=== PATIENT | female | born 1985 | race Caucasian/White ===

== ENCOUNTER → 2023-03-04 | Outpatient (CLI) | payer MEDICAID ==
[2004-07-05 00:16] VITALS: TEMP 97.4
[~2023-03-04] MED LIST: BCP TD; BENADRYL25 M2 PO; CEPHALEXIN500 M1 PO; CLINDAMYCIN HC300 MG PO; CYMBALTA 30MG30 MG PO; DEPAKOTE 125MG125 M1 PO; DEPAKOTE500 MG PO; DEPO SHOT IM; INDERAL LA160 MG PO; IRON325 MG PO; KLONOPIN 1MG1 MG PO; NORCO 325 MG-51 TAB PO; PERCOCET 5/321 UDTAB PO; PROVENTIL0.09 MG/A1 IH; SYNTHROID0.05 MG/TA PO; SYNTHROID0.088 MG/T PO; TOPAMAX 100MG100 M1 PO; VALIUM 2MG T2 MG/TAB PO; VALTREX1 GM PO
== END ==
LOC: COL.CARD 13:17
DX: R00.2 Palpitations (principal)